=== PATIENT | female | born 2005 | race Caucasian/White ===

== ENCOUNTER → 2025-01-23 | Emergency (ER) | payer OTHER ==
[~2025-01-23] VITALS: Ht 149.9 cm; Wt 53.5 kg
[~2025-01-23] MED LIST: CEPH-570 PO
[2025-01-23 14:40] VITALS: BP 142/85; TEMP 98.1; O2SAT 98
[2025-01-23 15:46] LABS: APPEARANCE,URINE SLIGHTLY CLOUDY (CLEAR); BILIRUBIN,URINE NEGATIVE (NEGATIVE); BLOOD, URINE NEGATIVE Ery/uL (NEGATIVE); COLOR,URINE YELLOW (YELLOW); KETONES,URINE NEGATIVE (NEGATIVE); LEUKOCYTE ESTERASE ,URINE 1+ (NEGATIVE); NITRITE, URINE NEGATIVE (NEGATIVE); PROTEIN,URINE NEGATIVE (NEGATIVE); UGLUCOSE NEGATIVE (NEGATIVE); UROBILINOGEN,URINE 0.2 EU/dL (0.2)
[2025-01-23 15:47] LABS: PREGNANCY TEST URINE QUAL NEGATIVE (NEGATIVE)
[2025-01-23 15:52] LABS: ADD URINE CULTURE YES; BACTERIA,URINE Few /HPF (None Seen); RBC,URINE 0-2 /HPF (0-2)
== END | disposition home or self-care (01) ==
LOC: ER 14:31
DX: N89.8 Other specified noninflammatory disorders of vagina (principal); N39.0 Urinary tract infection, site not specified; Z87.440 Personal history of urinary (tract) infections
CPT/HCPCS: 81001; 84703-TC; 87086-TC; 87210-TC